=== PATIENT | male | born 1955 | race Caucasian/White ===

== ENCOUNTER 2017-03-24 12:27 | Day surgery (SDC) | payer BC ==
[~2017-03-24] VITALS: Ht 172.7 cm; Wt 72.6 kg
--- NOTE | ~2017-03-24 | EGD ---
EGD REPORT [facility] [address] [id number] NAME: SAY RAHMAN : [birth year] STATUS : [place] [facility] [place] PAT#: [id number] AGE: 61 ADM/REG DATE : 03/24/17 MR#: [id number] REPORT SERV DATE: 03/26/17 DICTATED BY: MELISSA SAM DATE: 03/26/17 REPORT STATUS : Draft TRANSCRIBED BY: [employer] DATE: 03/26/17 [facility] Patient Name: Say Rahman Date of : 1955 Attending MD: MELISSA SAM MD Procedure Date No Time: 03/24/2017 Procedure: Upper GI endoscopy Indications: Dysphagia Referring MD: Lenny Conner MD Medicines: See the Anesthesia note for documentation of the administered medications Complications: No immediate complications. Procedure: Pre-Anesthesia Assessment: - ASA Grade Assessment: II - A patient with mild systemic disease. After obtaining informed consent, the endoscope was passed under direct vision. Throughout the procedure, the patient's blood pressure, pulse, and oxygen saturations were monitored continuously. The GIF [id number] was introduced through the mouth, and advanced to the second part of duodenum. The upper GI endoscopy was accomplished without difficulty. The patient tolerated the procedure well. Findings: The examined duodenum was normal. The entire examined stomach was normal. The cardia and gastric fundus were normal on retroflexion. A small hiatus hernia was present. A mild Schatzki ring (acquired) was found at the gastroesophageal junction. A guidewire was placed under fluoroscopic guidance and the scope was withdrawn. Dilation was performed with a Savary dilator with no resistance at 48 Fr. Impression: - Normal examined duodenum. - Normal stomach. - Hiatus hernia. - Mild Schatzki ring. Dilated. Recommendation: - Patient has a contact number available for emergencies. The signs and symptoms of potential delayed complications were discussed with the patient. Return to normal activities tomorrow. Written discharge instructions were provided to the patient. - Clear liquid diet today. EGD REPORT [address] [place]. [address] NAME: SAY RAHMAN : [birth year] STATUS : REG [facility] [place] PAT#: [id number] AGE: 61 ADM/REG DATE : 03/24/17 MR#: [id number] REPORT SERV DATE: 03/26/17 DICTATED BY: MELISSA SAM DATE: 03/26/17 REPORT STATUS : Draft TRANSCRIBED BY: [employer] DATE: 03/26/17 - Continue present medications. - Clear liquids today, soft diet tomorrow, regular diet the following day - Follow up with Dr Sam or his nurse practitioner in 6 weeks Procedure Code(s): --- Professional --- 21258, Esophagogastroduodenoscopy, flexible, transoral; with insertion of guide wire followed by passage of dilator(s) through esophagus over guide wire Diagnosis Code(s): --- Professional --- K44.9, Diaphragmatic hernia without obstruction or gangrene K22.2, Esophageal obstruction R13.10, Dysphagia, unspecified CPT copyright 2013 [employer]. All rights reserved. The codes documented in this report are preliminary and upon bench worker apprentice review may be revised to meet current compliance requirements. Melissa Sam MD MELISSA SAM MD 03/24/2017 3:21 PM This report has been signed electronically. Number of Addenda: 0 Note Initiated On: 03/24/2017 2:45 PM Scope Withdrawal Time 0 hours 0 minutes 0 seconds [id number] [id number]
[~2017-03-24 12:27] MED LIST: LEVOTHYROXIN50 MCG PO; NORV10 PO; PRILO PO; PROTONIX PO
== END 2017-03-24 23:59 | disposition home health service (06) ==
LOC: DMU 12:27
PROVIDERS: Internal Medicine Gastroenterology
PROC: 0D748ZZ Dilation of Esophagogastric Junction, Via Natural or Artificial Opening Endoscopic (ICD-10-PCS; principal; 2017-03-24 14:30)
DX: K22.2 Esophageal obstruction (principal); K44.9 Diaphragmatic hernia without obstruction or gangrene; I10 Essential (primary) hypertension; K21.9 Gastro-esophageal reflux disease without esophagitis; Z79.899 Other long term (current) drug therapy; Z98.890 Other specified postprocedural states
CPT/HCPCS: 76000